=== PATIENT | female | born 1945 | race Caucasian/White ===

== ENCOUNTER → 2016-04-21 | Outpatient (CLI) | payer OTHER ==
[2014-12-24 11:21] VITALS: BP 117/69
[~2016-04-21] MED LIST: ASPI-482 PO; ATOR10TA PO; CA C1TAB66 PO; CALC600T4 PO; CHOL100013 PO; ESTR0.62 PO; LISI5TAB PO; METO25TA2 PO; METO25TA4 PO; MULT1000 PO; NITR0.4T SL; PRAS10TA4 PO; PRAV20TA2 PO
--- NOTE | 2016-04-21 12:22 | KCIC ---
PROCEDURE Left axillary ultrasound. HISTORY Enlarged left axillary lymph nodes. FINDINGS Sonographic evaluation of the left axilla was performed. Multiple left axillary lymph nodes have prominent fatty renée and appear benign. The largest measures 2.0 x 0.9 x 0.9 centimeters. Others are smaller and also appear benign. No suspicious mass is identified. IMPRESSION - Left axillary lymph nodes appear benign. Recommend ongoing follow-up of palpable foci. Electronically signed by: Ron Decker (Apr 21, 2016 12:21:12)
== END | disposition home or self-care (01) ==
LOC: KCIC US 10:43
PROVIDERS: ATTEND Family Medicine
DX: R59.9 Enlarged lymph nodes, unspecified (principal)
CPT/HCPCS: 76882

== ENCOUNTER → 2016-10-27 | Outpatient (CLI) | payer OTHER ==
[2014-12-24 11:21] VITALS: BP 117/69
[~2016-10-27] MED LIST changes: +IOHEXOL 300 MG/ML 75 ML VIAL IV ONE; +IOHEXOL 300 MG/ML 75 ML VIAL ONE; -PRAS10TA4 PO; +PRAS10TA9 PO
--- NOTE | 2016-10-27 11:21 | RAD ---
Indication aneurysm ascending thoracic aorta. Follow-up. Axial images through the chest were obtained. Images were obtained during the arterial phase. 75 cc of Omnipaque 300 was administered intravenously. MIP images were generated and reviewed. Note is made of a previous examination 12/20/2014. Imaging through the upper abdomen appears unremarkable. There is no significant hilar or mediastinal adenopathy. The ascending thoracic aorta remains at the upper limits of normal in diameter approaching 4 cm. No acute finding is seen associated with the thoracic aorta. An acute parenchymal infiltrate in either lung is not seen. There is no dominant soft tissue mass. IMPRESSION: Ascending thoracic aorta remains at the upper limits of normal in diameter approaching 4 cm. No acute finding seen in the chest PQRS Compliance Statement: One or more of the following individualized dose reduction techniques were utilized for this examination: 1. Automated exposure control 2. Adjustment of the mA and/or kV according to patient size 3. Use of iterative reconstruction technique
== END | disposition home or self-care (01) ==
LOC: CT 08:39
PROVIDERS: ATTEND Internal Medicine Cardiovascular Disease
DX: I71.9 Aortic aneurysm of unspecified site, without rupture (principal)
CPT/HCPCS: 71275; Q9967

== ENCOUNTER → 2016-12-20 | Outpatient (CLI) | payer OTHER ==
[2014-12-24 11:21] VITALS: BP 117/69
[~2016-12-20] MED LIST changes: -IOHEXOL 300 MG/ML 75 ML VIAL IV ONE; -IOHEXOL 300 MG/ML 75 ML VIAL ONE
--- NOTE | 2016-12-20 16:00 | KCIC ---
EXT NON VASC LTD LEFT History: Left arm pit swelling Comparison: 04/21/2016 Findings: Sonographic images at the site of concern of the left axillary region are submitted. No discrete solid cystic mass or significant lymphadenopathy is demonstrated. Impression: 1. No significant abnormality is demonstrated by ultrasound of the left axillary region. Electronically signed by: Rodolfo Dhaliwal MD (12/20/2016 3:57 PM) [facility]
--- NOTE | 2016-12-22 10:52 | RAD ---
DATE: 12/20/2016 EXAM: MAMMO WILMER SCREENING BILATERAL HISTORY: Routine screening, microcalcifications COMPARISON: 01/29/2016, 01/12/2016, 08/05/2015 This study was interpreted with the benefit of Computerized Aided Detection (CAD). The breast parenchyma is heterogeneously dense, which could reduce sensitivity of mammography. Breast parenchyma level C. FINDINGS: 2-D and 3-D tomosynthesis imaging was performed in CC and MLO projections. The fibroglandular tissues are quite heterogeneous. No new or enlarging breast densities are seen. There are microcalcifications throughout both breasts. The distribution suggests a benign etiology. No new suspicious microcalcifications are seen. There report from the outside 01/29/2016 study indicated that these microcalcifications appear stable dating back to 2005. Benign-appearing lymph node type densities are present in the axillary regions. IMPRESSION: Stable mammograms without evidence of malignancy. BI-RADS CATEGORY: 2 BENIGN FINDING(S) RECOMMENDED FOLLOW-UP: 12M 12 MONTH FOLLOW-UP PQRS compliance statement: Patient information was entered into a reminder system with a target due date for the next mammogram. Mammography is a sensitive method for finding small breast cancers, but it does not detect them all and is not a substitute for careful clinical examination. A negative mammogram does not negate a clinically suspicious finding and should not result in delay in biopsying a clinically suspicious abnormality. "Our facility is accredited by the [employer] Mammography [employer]."
== END | disposition home or self-care (01) ==
LOC: KCIC US 14:36
PROVIDERS: ATTEND Family Medicine
DX: Z12.31 Encounter for screening mammogram for malignant neoplasm of breast (principal); M79.89 Other specified soft tissue disorders
CPT/HCPCS: 76882; 77063; G0202; 77067

== ENCOUNTER 2017-09-12 06:21 | Outpatient (CLI) | payer OTHER ==
[2017-09-12] MEDS ORDERED: IODIXANOL 320 MG/ML 100 ML VIAL. (07:03)
[2017-09-12] MEDS ORDERED: LIDOCAINE 1% PF 30 ML VIAL. (07:03)
[2017-09-12] MEDS ORDERED: HEPARIN for ARTERIAL LINE 1,500 ML (07:04)
[2017-09-12 07:05] LABS: HEMATOCRIT 38.5 % (36.0-47.0); HEMOGLOBIN 12.8 g/dL (12.0-15.5); MEAN CORPUSCULAR HEMOGLOBIN 31 pg (25-35); MEAN CORPUSCULAR HGB CONC 33 g/dL (31-37); MEAN CORPUSCULAR VOLUME 92 fL (79-100); PLATELET COUNT 124 x10^3/uL (140-400); RED BLOOD COUNT 4.18 x10^6/uL (3.50-5.40); RED CELL DISTRIBUTION WIDTH 13.7 % (11.5-14.5); WHITE BLOOD COUNT 3.2 x10^3/uL (4.0-11.0)
[2017-09-12 07:15] LABS: PARTIAL THROMBOPLASTIN TIME 24 SEC (24-38); PROTHROMBIN TIME PATIENT 12.9 SEC (11.7-14.0)
[2017-09-12 07:16] LABS: ANION GAP 9 (6-14); BLOOD UREA NITROGEN 11 mg/dL (7-20); CALCIUM 9.5 mg/dL (8.5-10.1); CARBON DIOXIDE 31 mmol/L (21-32); CHLORIDE 105 mmol/L (98-107); CREATININE 0.8 mg/dL (0.6-1.0); GFR 70.3; GLUCOSE 95 mg/dL (70-99); POTASSIUM 3.7 mmol/L (3.5-5.1); SODIUM 145 mmol/L (136-145)
[2017-09-12] MEDS ORDERED: CONTRAST GIVEN. MC (07:30)
[2017-09-12] MEDS: LIDOCAINE 2% 20 ML VIAL. IJ (07:30)
[2017-09-12] MEDS: MIDAZOLAM HCL/PF 2 MG/2 ML VIAL. IV (07:30)
[2017-09-12] MEDS: IODIXANOL 320 MG/ML 100 ML VIAL. IART (07:30)
[2017-09-12] MEDS: fentaNYL PF VIAL 100 MCG/2 ML VIAL IV (07:30)
[2017-09-12] MEDS ORDERED: fentaNYL PF VIAL 100 MCG/2 ML VIAL (08:06)
[2017-09-12] MEDS ORDERED: MIDAZOLAM HCL/PF 2 MG/2 ML VIAL. (08:06)
[2017-09-12] MEDS ORDERED: HEPARIN for IV BOLUS 10,000 UNIT/10 ML VIAL. (08:15)
[2017-09-12] MEDS ORDERED: NITROGLYCERIN 200 MCG/2 ML SYRINGE FOR CATH/VASC LAB. (08:16)
[2017-09-12] MEDS ORDERED: VERAPAMIL 5 MG/2 ML VIAL. (08:16)
[2017-09-12] MEDS: NITROGLYCERIN 200 MCG/2 ML SYRINGE FOR CATH/VASC LAB. IART (08:30)
[2017-09-12] MEDS: HEPARIN for IV BOLUS 10,000 UNIT/10 ML VIAL. IART (08:30)
[2017-09-12] MEDS: VERAPAMIL 5 MG/2 ML VIAL. IART (08:30)
[2017-09-12] MEDS: HEPARIN for IV BOLUS 10,000 UNIT/10 ML VIAL. IV (09:23)
[2017-09-12 10:14] LABS: CHOLESTEROL 172 mg/dL (0-200); HDLC 61 mg/dL (40-60); LDLC 95 mg/dL (0-100); NON-HDL CHOLESTEROL 111 mg/dL (0-129); TRIGLYCERIDES 78 mg/dL (0-150); VLDLC 16 mg/dL (0-40)
[2017-09-12 10:19] LABS: CHOLESTEROL/HDL RATIO 2.8
== END 2017-09-12 12:30 | disposition home or self-care (01) ==
LOC: CCL 06:21
DX: I25.10 Atherosclerotic heart disease of native coronary artery without angina pectoris (principal); E78.00 Pure hypercholesterolemia, unspecified; F41.9 Anxiety disorder, unspecified; Z88.5 Allergy status to narcotic agent; Z86.73 Personal history of transient ischemic attack (TIA), and cerebral infarction without residual deficits; Z95.5 Presence of coronary angioplasty implant and graft; Z87.19 Personal history of other diseases of the digestive system; Z90.710 Acquired absence of both cervix and uterus; M19.90 Unspecified osteoarthritis, unspecified site; Z79.82 Long term (current) use of aspirin; Z79.899 Other long term (current) drug therapy; Z79.01 Long term (current) use of anticoagulants
CPT/HCPCS: 36415; 80048; 80061; 85027; 85610; 85730; 93458; 93571; 99152; 99153; C1769; C1887; C1892; J1644; J2001; J2250; J3010; J3490

== ENCOUNTER → 2017-12-21 | Outpatient (CLI) | payer OTHER ==
[2017-09-12 11:30] VITALS: BP 105/57
[~2017-12-21] MED LIST changes: +CLOP75TA PO; +METO-239 PO; +PANT20TA2 PO
--- NOTE | 2017-12-21 13:09 | KCIC ---
Bilateral digital screening mammograms with 3-D tomosynthesis: Reason for examination: Routine screening. Comparison is made to previous studies dated 12/20/2016 and 08/05/2015. Bilateral mammograms in CC and oblique projections were obtained with 2-D imaging and 3-D tomosynthesis imaging on a Siemens Inspiration unit and reviewed on the workstation. Interpretation was made with the benefit of CAD. The skin and nipples show no abnormalities. No abnormal axillary lymph nodes are seen. The breast parenchyma is extremely dense. (Breast density: Category D.) There continues to be some dense parenchymal asymmetry in the upper outer quadrant of the right breast which is unchanged. There are no new dominant masses, suspicious calcifications or architectural distortion. Benign calcifications are present. Impression: No evidence of malignancy. Recommend routine screening. Your patient's mammogram demonstrates that she has dense breast tissue (breast density category C or D), which could hide abnormalities, and if she has other risk factors for breast cancer that have been identified, she might benefit from supplemental screening tests that may be suggested by you as her ordering physician. Dense breast tissue, in and of itself, is a relatively common condition. Therefore, this information is not provided to cause undue concern, but rather to raise your awareness and to promote discussion with your patient regarding the presence of other risk factors, in addition to dense breast tissue. Your patient's mammography results will be sent to her. BI-RAD Category 2: Benign. "Our facility is accredited by the [employer] Mammography [employer]." This patient's information has been entered into a reminder system for the patient to be notified with the results of her examination and a target date for the next mammogram. Electronically signed by: Jud Sol MD (12/21/2017 1:05 PM) [facility]
== END | disposition home or self-care (01) ==
LOC: KCIC MAMMO 07:54
PROVIDERS: ATTEND Family Medicine
DX: Z12.31 Encounter for screening mammogram for malignant neoplasm of breast (principal)
CPT/HCPCS: 77063; 77067

== ENCOUNTER → 2018-05-10 | Outpatient (CLI) | payer OTHER ==
[2017-09-12 11:30] VITALS: BP 105/57
--- NOTE | 2018-05-10 12:25 | CARD ---
MR#: [id number] Date of Study: 05/10/2018 Ordering Physician: DEB KAYE, Referring Physician: DEB KAYE, Tech: Melva Quintana APPROVED REPORT EXAM: Two-dimensional and M-mode echocardiogram with Doppler and color Doppler. Other Information Quality : GoodHR: 65bpm Rhythm : NSR INDICATION Ascending aortic dilatation RISK FACTORS Hypertension Hyperlipidemia 2D DIMENSIONS RVDd3.5 (2.9-3.5cm)Left Atrium(2D)3.5 (1.6-4.0cm) IVSd1.0 (0.7-1.1cm)Aortic Root(2D)2.7 (2.0-3.7cm) LVDd4.6 (3.9-5.9cm)LVOT Diameter2.0 (1.8-2.4cm) PWd1.0 (0.7-1.1cm)LVDs3.0 (2.5-4.0cm) FS (%) 35.5 %SV63.3 ml LVEF(%)65.0 (>50%) Aortic Valve AoV Peak Jeffy.127.7cm/sAoV VTI27.1cm AO Peak GR.6.5mmHgLVOT Peak Jeffy.94.5cm/s LVOT VTI 20.05cmAO Mean GR.4mmHg ANGELI (VMAX)1.05mn5NEG (VTI)2.42cm2 AI P 1/2 Mycu256dq Mitral Valve MV E Wfycorhl29.4cm/sMV DECEL LBTO380ij MV A Mzydcqqx60.2cm/sMV VQQ43gv E/A Ratio0.8MVA (PHT)4.04cm2 TDI E/Lateral E'6.1E/Medial E'6.8 Pulmonary Valve PV Peak Vbpolkll63.0cm/sPV Peak Grad.3mmHg Tricuspid Valve TR P. Lgaqtvhj258iu/sRAP NBMHBTRM3oqJz TR Peak Gr.92toJrQCRG09zwVg Pulmonary Vein S1 Dlbwciga81.6cm/sD2 Whlyhfae90.9cm/s PVa tloetibs113opim LEFT VENTRICLE The left ventricle is normal size. There is normal left ventricular wall thickness. The left ventricu lar systolic function is normal and the ejection fraction is within normal range. The Ejection Fracti on is >55%. There is normal LV segmental wall motion. Transmitral Doppler flow pattern is Grade I-abn ormal relaxation pattern. RIGHT VENTRICLE The right ventricle is normal size. There is normal right ventricular wall thickness. The right ventr icular systolic function is normal. ATRIA The left atrium size is normal. The right atrium size is normal. The interatrial septum is intact wit h no evidence for an atrial septal defect or patent foramen ovale as noted on 2-D or Doppler imaging. AORTIC VALVE The aortic valve is normal in structure and function. Doppler and Color Flow revealed mild aortic reg urgitation. There is no significant aortic valvular stenosis. MITRAL VALVE The mitral valve is normal in structure and function. There is no evidence of mitral valve prolapse. There is no mitral valve stenosis. Doppler and Color-flow revealed trace mitral regurgitation. TRICUSPID VALVE The tricuspid valve is normal in structure and function. Doppler and Color Flow revealed trace tricus pid regurgitation with an estimated PAP of 29 mmHg. There is no tricuspid valve stenosis. PULMONIC VALVE Doppler and Color Flow revealed trace pulmonic valvular regurgitation. There is no pulmonic valvular stenosis. GREAT VESSELS The aortic root is normal in size. The IVC is normal in size and collapses >50% with inspiration. PERICARDIAL EFFUSION There is no evidence of significant pericardial effusion. Critical Notification Critical Value: No <Conclusion> The left ventricular systolic function is normal and the ejection fraction is within normal range. Th e Ejection Fraction is >55%. There is normal LV segmental wall motion. Doppler and Color Flow revealed mild aortic regurgitation. Signed by : Deb Kaye, Electronically Approved : 05/10/2018 12:25:01
== END | disposition home or self-care (01) ==
LOC: ECHO 10:30
PROVIDERS: ATTEND Internal Medicine Cardiovascular Disease
DX: I35.1 Nonrheumatic aortic (valve) insufficiency (principal); I77.810 Thoracic aortic ectasia; I10 Essential (primary) hypertension; E78.5 Hyperlipidemia, unspecified
CPT/HCPCS: 93306

== ENCOUNTER → 2018-12-26 | Outpatient (CLI) | payer OTHER ==
[2017-09-12 11:30] VITALS: BP 105/57
[~2018-12-26] MED LIST changes: -NITR0.4T SL; +NITR0.4T24 SL
--- NOTE | 2018-12-26 19:50 | KCIC ---
Bilateral digital screening mammograms with 3-D tomosynthesis: Reason for examination: Routine screening. Comparison is made to previous studies dated 12/21/2017 and 12/20/2016. Bilateral mammograms in CC and oblique projections were obtained with 2-D imaging and 3-D tomosynthesis imaging on a Siemens Inspiration unit and reviewed on the workstation. Interpretation was made with the benefit of CAD. The skin and nipples show no abnormalities. No abnormal axillary lymph nodes are seen. The breast parenchyma is extremely dense. (Breast density: Category D.) There are no dominant masses, suspicious calcifications or architectural distortion. Benign calcifications are present. Impression: No evidence of malignancy. Recommend routine screening. Your patient's mammogram demonstrates that she has dense breast tissue (breast density category C or D), which could hide abnormalities, and if she has other risk factors for breast cancer that have been identified, she might benefit from supplemental screening tests that may be suggested by you as her ordering physician. Dense breast tissue, in and of itself, is a relatively common condition. Therefore, this information is not provided to cause undue concern, but rather to raise your awareness and to promote discussion with your patient regarding the presence of other risk factors, in addition to dense breast tissue. Your patient's mammography results will be sent to her. BI-RAD Category 2: Benign. "Our facility is accredited by the [employer] Mammography [employer]." This patient's information has been entered into a reminder system for the patient to be notified with the results of her examination and a target date for the next mammogram. Electronically signed by: Jud Sol MD (12/26/2018 7:48 PM) [facility]
== END | disposition home or self-care (01) ==
LOC: KCIC MAMMO 08:06
PROVIDERS: ATTEND Family Medicine
DX: Z12.31 Encounter for screening mammogram for malignant neoplasm of breast (principal); N64.89 Other specified disorders of breast
CPT/HCPCS: 77063; 77067

== ENCOUNTER → 2019-07-25 | Outpatient (CLI) | payer MEDICARE ==
[2017-09-12 11:30] VITALS: BP 105/57
--- NOTE | 2019-07-25 10:46 | CARD ---
MR#: [id number] Date of Study: 07/25/2019 Ordering Physician: DEB STUBBS, Referring Physician: DEB STUBBS, Tech: Leona Singh [facility] APPROVED REPORT EXAM: Two-dimensional and M-mode echocardiogram with Doppler and color Doppler. Other Information Quality : Good INDICATION Ascending Aortic Aneurysm 2D DIMENSIONS RVDd2.7 (2.9-3.5cm)Left Atrium(2D)3.7 (1.6-4.0cm) IVSd0.9 (0.7-1.1cm)Aortic Root(2D)2.9 (2.0-3.7cm) LVDd4.6 (3.9-5.9cm)LVOT Diameter2.1 (1.8-2.4cm) PWd0.8 (0.7-1.1cm)LVDs2.9 (2.5-4.0cm) FS (%) 37.6 %SV65.0 ml LVEF(%)60.0 (>50%) Aortic Valve AoV Peak Jeffy.118.7cm/sAoV VTI24.3cm AO Peak GR.5.6mmHgAO Mean GR.3mmHg AI P 1/2 Zync154lv Mitral Valve MV E Frjwxlgj02.6cm/sMV DECEL ILNF708yp MV A Aabugifk53.8cm/sE/A Ratio1.2 Tricuspid Valve TR P. Qyzhlrwm233oc/sRAP UGFMZDZN9muZd TR Peak Gr.58dgUsCELO98ujMx Pulmonary Vein S1 Mxcvwhqk93.5cm/sD2 Lbaevxgw44.0cm/s LEFT VENTRICLE The left ventricle is normal size. There is normal left ventricular wall thickness. The left ventricu lar systolic function is normal. The Ejection Fraction is 55-60%. There is normal LV segmental wall m otion. Transmitral Doppler flow pattern is Grade II-pseudonormal filling dynamics. RIGHT VENTRICLE The right ventricle is normal size. The right ventricular systolic function is normal. ATRIA The left atrium size is normal. The right atrium size is normal. The interatrial septum is intact wit h no evidence for an atrial septal defect or patent foramen ovale as noted on 2-D or Doppler imaging. AORTIC VALVE The aortic valve is calcified but opens well. Doppler and Color Flow revealed mild aortic regurgitati on. There is no significant aortic valvular stenosis. MITRAL VALVE The mitral valve is calcified but opens well. There is no evidence of mitral valve prolapse. There is no mitral valve stenosis. Doppler and Color-flow revealed trace to mild mitral regurgitation. TRICUSPID VALVE The tricuspid valve is normal in structure and function. Doppler and Color Flow revealed trace tricus pid regurgitation. The PA pressure was estimated at 27 mmHg. There is no tricuspid valve stenosis. PULMONIC VALVE The pulmonary valve is normal in structure and function. Doppler and Color Flow revealed mild pulmoni c valvular regurgitation. There is no pulmonic valvular stenosis. GREAT VESSELS The aortic root is normal in size. The ascending aorta is moderately dilated at 3.7 cm. The IVC is no rmal in size and collapses >50% with inspiration. PERICARDIAL EFFUSION There is no evidence of significant pericardial effusion. Critical Notification Critical Value: No <Conclusion> The left ventricular systolic function is normal. The Ejection Fraction is 55-60%. There is normal LV segmental wall motion. Transmitral Doppler flow pattern is Grade II-pseudonormal filling dynamics. Mild aortic regurgitation. Trace to mild mitral regurgitation. Trace tricuspid regurgitation. The PA pressure was estimated at 27 mmHg. The ascending aorta is moderately dilated at 3.7 cm. There is no evidence of significant pericardial effusion. Signed by : Chintan Carmona, Electronically Approved : 07/25/2019 10:46:03
== END | disposition home or self-care (01) ==
LOC: ECHO 09:32
PROVIDERS: ATTEND Internal Medicine Cardiovascular Disease
DX: I08.8 Other rheumatic multiple valve diseases (principal); I48.91 Unspecified atrial fibrillation
CPT/HCPCS: 93306

== ENCOUNTER → 2019-09-19 | Outpatient (CLI) | payer MEDICARE ==
[2017-09-12 11:30] VITALS: BP 105/57
[~2019-09-19] MED LIST changes: -CALC600T4 PO; +CALC600T6 PO
== END | disposition home or self-care (01) ==
LOC: NM 08:41
PROVIDERS: ATTEND Internal Medicine Cardiovascular Disease
DX: I25.10 Atherosclerotic heart disease of native coronary artery without angina pectoris (principal)
CPT/HCPCS: 78452; 93017; A9500

== ENCOUNTER → 2020-01-09 | Outpatient (CLI) | payer MEDICARE ==
[2017-09-12 11:30] VITALS: BP 105/57
--- NOTE | 2020-01-09 14:24 | KCIC ---
Bilateral digital screening mammograms with 3-D tomosynthesis: Reason for examination: Routine screening. Comparison is made to previous studies dated back to 12/20/2016. Bilateral mammograms in CC and oblique projections were obtained with 2-D imaging and 3-D tomosynthesis imaging on a Siemens Inspiration unit and reviewed on the workstation. Interpretation was made with the benefit of CAD. The skin and nipples show no abnormalities. No abnormal axillary lymph nodes are seen. The breast parenchyma is extremely dense. (Breast density: Category D.) There continues to be dense nodular asymmetry in the upper outer quadrant of the right breast which is stable. In the upper outer quadrant of the left breast however, there appears to be some focally increased nodularity present. Further evaluation with ultrasound is recommended. There are no suspicious calcifications seen. A few scattered benign-appearing calcifications however are again seen. Impression: New nodularity at approximately 2:00 B and 3:00 B positions of the left breast. Recommend further evaluation with ultrasound. Your patient's mammogram demonstrates that she has dense breast tissue (breast density category C or D), which could hide abnormalities, and if she has other risk factors for breast cancer that have been identified, she might benefit from supplemental screening tests that may be suggested by you as her ordering physician. Dense breast tissue, in and of itself, is a relatively common condition. Therefore, this information is not provided to cause undue concern, but rather to raise your awareness and to promote discussion with your patient regarding the presence of other risk factors, in addition to dense breast tissue. Your patient's mammography results will be sent to her. BI-RAD Category 0: Incomplete. Needs additional imaging evaluation. "Our facility is accredited by the [employer] Mammography Program." This patient's information has been entered into a reminder system for the patient to be notified with the results of her examination and a target date for the next mammogram. Electronically signed by: Jud Sol MD (01/09/2020 2:21 PM) [facility]
== END ==
LOC: KCIC MAMMO 12:30
PROVIDERS: ATTEND Family Medicine
DX: Z12.31 Encounter for screening mammogram for malignant neoplasm of breast (principal); N64.89 Other specified disorders of breast
CPT/HCPCS: 77063; 77067

== ENCOUNTER → 2020-01-17 | Outpatient (CLI) | payer MEDICARE ==
[2017-09-12 11:30] VITALS: BP 105/57
--- NOTE | 2020-01-17 14:16 | RAD ---
Examination: US BREAST LT History: Reason: ABNORMAL MAMMOGRAM CALLBACK / Spl. Instructions: / History: Comparison/Correlation: 01/09/2020 mammogram Findings: Limited left breast ultrasound examination at the 2:00 to 3:00 region was performed. Left a xillary ultrasound was also performed. There is no mass, cyst, or other suspicious finding involving the left outer breast at the 2:00 to 3:00 region. No suspicious left axillary lymph node. Impression: BI-RADS Category 1-negative. Annual screening mammography is recommended. Electronically signed by: Tani Thomas MD (01/17/2020 2:14 PM) [id number]
== END ==
LOC: US 13:37
PROVIDERS: ATTEND Family Medicine
DX: R92.8 Other abnormal and inconclusive findings on diagnostic imaging of breast (principal)
CPT/HCPCS: 76641

== ENCOUNTER → 2021-03-17 | Outpatient (CLI) | payer MEDICARE ==
[2017-09-12 11:30] VITALS: BP 105/57
[~2021-03-17] MED LIST changes: -CALC600T6 PO; +CALC600T60 PO
--- NOTE | 2021-03-17 14:31 | KCIC ---
Bilateral digital screening mammograms with 3-D tomosynthesis: Reason for examination: Routine screening. Comparison is made to previous studies dated back to 12/20/2016. Bilateral mammograms in CC and oblique projections were obtained with 2-D imaging and 3-D tomosynthes is imaging on a Siemens Inspiration unit and reviewed on the workstation. Interpretation was made wit h the benefit of CAD. The skin and nipples show no abnormalities. No abnormal axillary lymph nodes are seen. The breast par enchyma is extremely dense. (Breast density: Category D.) There are no dominant masses, suspicious ca lcifications or architectural distortion. Benign calcifications are present. Impression: No evidence of malignancy. Recommend routine screening. Your patient's mammogram demonstrates that she has dense breast tissue (breast density category C or D), which could hide abnormalities, and if she has other risk factors for breast cancer that have bee n identified, she might benefit from supplemental screening tests that may be suggested by you as her ordering physician. Dense breast tissue, in and of itself, is a relatively common condition. Therefo re, this information is not provided to cause undue concern, but rather to raise your awareness and t o promote discussion with your patient regarding the presence of other risk factors, in addition to d ense breast tissue. Your patient's mammography results will be sent to her. BI-RAD Category 2: Benign. "Our facility is accredited by the [employer] Mammography Program." This patient's information has been entered into a reminder system for the patient to be notified wit h the results of her examination and a target date for the next mammogram. Electronically signed by: Jud Sol MD (03/17/2021 2:28 PM) [facility]
== END ==
LOC: KCIC MAMMO 09:06
PROVIDERS: ATTEND Family Medicine
DX: Z12.31 Encounter for screening mammogram for malignant neoplasm of breast (principal)
CPT/HCPCS: 77063; 77067

== ENCOUNTER → 2021-06-08 | Outpatient (CLI) | payer MEDICARE ==
[2017-09-12 11:30] VITALS: BP 105/57
[~2021-06-08] MED LIST changes: +REGADENOSON 0.4 MG/5 ML DISP.SYRIN. IV ONE
--- NOTE | 2021-06-09 11:59 | RAD ---
MR#: [id number] Date of Study: 06/08/2021 Ordering Physician: DEB KAYE, Referring Physician: BERNICE OLEA Tech: ANEUDY Vega APPROVED REPORT Test Type: Pharmacological Stress Nurse/Tech: Carrie Godinez RN Test Indications: CAD Cardiac History: Hypertension,GA,PTCA,high cholesterol Medications: See Electronic Medical Record Medical History: See Electronic Medical Record Resting ECG: SR Resting Heart Rate: 67 bpm Resting Blood Pressure: 137/67mmHg Pretest Chest Pain: No chest pain Nurse/Tech Notes S1,S2 and lungs clear to auscultation. Consent: The procedure was explained to the patient in lay terms. Informed consent was witnessed. Royce eout was entered into [email or web address]. History and Stress Test performed by MARY Burgos, BROOKE (R) (N) Pharm. Details Pharmacologic stress testing was performed using 0.4mg per 5ml of regadenoson given intravenously ove r 7-10 seconds. Stress Symptoms Dyspnea POST EXERCISE Reason for Termination: Infusion complete Target HR: No Max HR: 111 bpm 90% of Maximum Predicted HR: 122 bpm Max Blood Pressure: 147/65mmHg Blood Pressure response to exercise: Normal blood pressure response during stress. Heart Rate response to exercise: WNL Chest Pain: No. Arrhythmia: No. ST Change: No. INTERPRETATION Stress EKG Conclusion: No evidence of stress induced EKG changes. Imaging Protocol IMAGE PROTOCOL: Rest Tc-99m/stress Tc-99m 1 day Rest: Stress: Viability: Radiopharm.Tc99m XfapglgxtGv33v Sestamibi Alsl33eRv 31mCi Duration 15min. 13min. Img Date 06/08/2021 06/08/2021 Inj-Img Tgco47jak. 60min. Rest Admin Site:IV - Left AntecubitalAdministrator:MARY Burgos, BROOKE (R)(N) Stress Admin Site: IV - Left AntecubitalAdministrator: MARY Burgos ARRT (R)(N) STRESS DATA End Diast. Vol.92.0mlLVEDV index BSA54.0ml End Syst. Vol.25.0mlLVESV index BSA14.0ml Myocardial Fvrz466.0gEject. Cvysrekm40.0% Stress Scores Regional WT1.00Summed WT4.00 Regional WM0.00Summed WM0.00 The rest and stress images show normal perfusion, normal contraction and thickening. LV Perf. Quant 17 Seg. SSS0.00 17 Seg. SRS0.00 17 Seg. SDS0.00 Stress Defect Extent (% LAD)0.00Rest Defect Extent (% LAD)0.00Rev. Defect Extent (% LAD)0.00 Stress Defect Extent (% LCX) 0.00Rest Defect Extent (% LCX)0.00Rev. Defect Extent (% LCX)0.00 Stress Defect Extent (% RCA)0.00Rest Defect Extent (% RCA)0.00Rev. Defect Extent (% RCA)0.00 Stress Defect Extent (% PRAFUL)0.00Rest Defect Extent (% PRAFUL)0.00Rev. Defect Extent (% PARFUL)0.00 Other Information Quality:Average Risk Assessment: Low Risk Conclusion 1. No evidence of EKG changes with stress testing. 2. Normal perfusion at stress/rest. 3. Low risk study. 4. EF > 60%. Signed by : Deb Kaye, Electronically Approved : 06/09/2021 11:59:11
== END ==
LOC: NM 08:32
PROVIDERS: ATTEND Internal Medicine Cardiovascular Disease
DX: I25.10 Atherosclerotic heart disease of native coronary artery without angina pectoris (principal)
CPT/HCPCS: 78452; 93017; A9500; J2785